=== PATIENT | female | born 1950 | race Two or more races ===

== ENCOUNTER 2024-04-29 08:47 | Outpatient (CLI) | payer OTHER | END 2024-04-29 08:50 | disposition home or self-care (01) | LOC: SONOGRAMA 08:47 | PROVIDERS: ATTEND Pathology Anatomic Pathology & Clinical Pathology | DX: E04.2 Nontoxic multinodular goiter (principal); D34 Benign neoplasm of thyroid gland; D44.0 Neoplasm of uncertain behavior of thyroid gland ==

== ENCOUNTER 2024-06-20 08:13 | Outpatient (CLI) | payer OTHER | END 2024-06-20 08:19 | disposition home or self-care (01) | LOC: SONOGRAMA 08:13 | PROVIDERS: ATTEND Pathology Anatomic Pathology & Clinical Pathology | DX: D44.0 Neoplasm of uncertain behavior of thyroid gland (principal); E04.2 Nontoxic multinodular goiter ==